=== PATIENT | female | born 1940 | race Two or more races ===

== ENCOUNTER 2018-12-25 16:17 | Inpatient (IN) | payer MEDICARE ==
[~2018-12-25] VITALS: Ht 167.6 cm; Wt 85.3 kg
--- NOTE | 2018-12-25 16:24 | NUR ---
PT BIB [facility] TO ADMISSION TO [facility], PT IS AAOX2, NOT IN RESPIRATORY DISTRESS, HOOKED TO MONITOR, KEPT RESTED AND COMFORTABLE, WILL CONTINUE TO MONITOR.
--- NOTE | 2018-12-25 16:40 | NUR ---
PT SEEN AND EXAMINED BY DR. KELLY.
--- NOTE | 2018-12-25 16:42 | NUR ---
URINE SPECIMEN COLLECTED AND SENT TO LAB.
[2018-12-25] MEDS ORDERED: LEVO175T7 PO (16:43)
[2018-12-25] MEDS ORDERED: INSU100V11 SQ (16:43)
[2018-12-25] MEDS ORDERED: BISA10SU11 RC (16:43)
[2018-12-25] MEDS ORDERED: FURO-144 PO (16:43)
[2018-12-25] MEDS ORDERED: MAGN400O6 PO (16:43)
[2018-12-25] MEDS ORDERED: IPRA3AMP23 IH ×2 (16:43)
[2018-12-25] MEDS ORDERED: DOCU-141 PO (16:43)
[2018-12-25] MEDS ORDERED: DIVA250T4 PO (16:43)
[2018-12-25] MEDS ORDERED: ASPI-869 PO (16:43)
[2018-12-25] MEDS ORDERED: FERR325T24 PO (16:43)
[2018-12-25] MEDS ORDERED: LISI2.5T2 PO (16:43)
[2018-12-25] MEDS ORDERED: RISP0.253 PO (16:43)
[2018-12-25] MEDS ORDERED: NA P133E RC (16:43)
[2018-12-25] MEDS ORDERED: PSYL0.525 PO (16:43)
[2018-12-25] MEDS ORDERED: PANT40TA2 PO (16:43)
[2018-12-25] MEDS ORDERED: ACET-868 PO (16:43)
[2018-12-25 16:54] LABS: BASOPHILS % (AUTO) 0.5 % (0.0-2.0); EOSINOPHILS % (AUTO) 4.4 % (0.0-6.0); HEMATOCRIT 31 % (33-45); HEMOGLOBIN 9.9 g/dL (11.5-14.8); LYMPHOCYTES # (AUTO) 1.8 /CMM (0.8-4.8); LYMPHOCYTES % (AUTO) 37.7 % (20.0-44.0); MEAN CORPUSCULAR HGB CONC 32 g/dl (31.0-36.0); MEAN CORPUSCULAR VOLUME 90 fL (82-100); MONOCYTES # (AUTO) 0.4 /CMM (0.1-1.30); MONOCYTES % (AUTO) 9.1 % (2.0-12.0); NEUTROPHILS # (AUTO) 2.3 /CMM (1.8-8.9); NEUTROPHILS % (AUTO) 48.3 % (43.0-81.0); PLATELET COUNT (AUTO) 165 /CMM (150-450); RED BLOOD CELL COUNT(AUTO) 3.39 MIL/uL (4.0-5.2); WHITE BLOOD COUNT (AUTO) 4.7 K/uL (4.3-11.0)
[2018-12-25 17:01] LABS: APPEARANCE,URINE Clear (CLEAR); BILIRUBIN,URINE Negative (NEGATIVE); BLOOD, URINE Negative Ery/uL (NEGATIVE); COLOR,URINE Yellow (YELLOW); KETONES,URINE Negative (NEGATIVE); LEUKOCYTE ESTERASE ,URINE Negative (NEGATIVE); NITRITE, URINE Negative (NEGATIVE); PH,URINE 5.5 (5.0-8.0); PROTEIN,URINE 30 mg/dl (NEGATIVE); UGLUCOSE Negative (NEGATIVE); UROBILINOGEN,URINE 0.2 EU/dL (0.2)
[2018-12-25 17:07] LABS: ALANINE AMINOTRANSFERASE 18 U/L (12-78); ALBUMIN 3.1 g/dL (3.4-5.0); ALCOHOL, BLOOD < 3 mg/dL (0-0); ALKALINE PHOSPHATASE 65 U/L (46-116); ASPARTATE AMINOTRANSFERASE 68 U/L (15-37); BILIRUBIN,DIRECT 0.1 mg/dL (0.0-0.2); BILIRUBIN,TOTAL 0.2 mg/dL (0.2-1.0); CALCIUM, SERUM 9.6 mg/dL (8.5-10.1); CARBON DIOXIDE 31 mmol/L (21-32); CHLORIDE 106 mmol/L (98-107); CREATININE 1.6 mg/dL (0.6-1.3); GLUCOSE 106 mg/dL (74-106); POTASSIUM 4.2 mmol/L (3.5-5.1); SODIUM SERUM 144 mmol/L (136-145); TOTAL PROTEIN, SERUM 8.6 g/dL (6.4-8.2); UREA NITROGEN, BLOOD 25 mg/dL (7-18)
[2018-12-25 17:10] LABS: SALICYLATE 1.1 mg/dL (2.8-20.0)
[2018-12-25 17:11] LABS: ACETAMINOPHEN 0 ug/ml (10-30)
--- NOTE | 2018-12-25 17:20 | NUR ---
PER HEADER SET UP OPERATOR OUMOU HE WILL BE HERE SOON HE IS CLEAR TO LEAVE OTHER FACILITY
[2018-12-25] MEDS ORDERED: BISACODYL SUPP (10 MG) 10 MG/SUPP.RECT SUPP.RECT RC PRN (18:00)
[2018-12-25] MEDS ORDERED: NA PHOS,M-B/NA PHOS,DI-BA 1 EA ENEMA RC PRN (18:00)
[2018-12-25] MEDS ORDERED: DEXTROSE 50%-WATER 50 ML DISP.SYRIN IV PRN ×2 (18:00→20:30)
[2018-12-25] MEDS ORDERED: MAGNESIUM HYDROXIDE 30 ML UDC PO PRN ×2 (18:00→20:00)
[2018-12-25] MEDS ORDERED: ACETAMINOPHEN 325 MG TABLET PO PRN ×2 (18:00→20:00)
--- NOTE | 2018-12-25 18:31 | NUR ---
OUMOU AZAR AT BEDSIDE FOR EVAL.
--- NOTE | 2018-12-25 18:34 | NUR ---
[facility]PS 212-1
--- NOTE | 2018-12-25 18:37 | NUR ---
REPORT GIVEN TO OUMOU GALEANA OF [facility]
[2018-12-25 19:40] VITALS: BP 117/66
--- NOTE | 2018-12-25 19:40 | NUR ---
GPS ADMISSION NOTES: ADMITTED A 78-YR OLD FEMALE, FROM [facility]. ON 5150 FOR DTS/GD. PER HOLD, PATIENT REPORTED FEELING SAD, HIGH ANXIETY, AND SOME THOUGHTS OF SUICIDE. PT. STATED "SOMETIMES I DO FEEL SAD AND THINK ABOUT SUICIDE". PT HAD A PLAN. PT. REPORTED TROUBLE SLEEPING, OFTEN WAKING UP THROUGHOUT THE NIGHT. PT. REPORTED POOR APPETITE D/T FEELING OF DEPRESSION AND HIGH ANXIETY. UPON FACE TO FACE ASSESSMENT, PATIENT IS ALERT AND ORIENTED X1, CONFUSED, ANXIOUS, UNCOOPERATIVE, FEELING DEPRESSED, VERBALIZATION OF FEELING ENCOURAGED. REORIENTATION PROVIDED. PT. DENIES SI/HI/AVH AT THIS TIME. PT. WAS ADVISED OF THE HOLD. PT'S RIGHTS DISCUSSED GUIDE TO PRESCRIPTION MEDICATIONS PROVIDED. IN NO APPARENT DISTRESS NOTED. BELONGINGS WERE INVENTORIED AND CHECKED FOR CONTRABAND. PT IS UNDER THE PSYCHIATRIC CARE OF DR. CONNIE ANGEL, AND UNDER THE MEDICAL CARE OF [facility]. REFUSED SKIN BODY ASSESSMENT AND REFUSED TO SIGN ADMISSION CONSENTS WELL D/T MENTAL STATUS. BED LOCKED AND PLACED IN LOWEST POSITION. FALL PRECAUTIONS IN PLACE. WILL CONTINUE TO MONITOR Q15 MIN ROUNDS FOR SAFETY AND BEHAVIOR. NO FAMILY TO NOTIFY.
[2018-12-25 20:00] VITALS: BP 117/66
[2018-12-25] MEDS ORDERED: MAG HYDROX/AL HYDROX/SIMETH 30 ML UDC PO PRN (20:00)
[2018-12-25] MEDS ORDERED: BLOOD SUGAR DIAGNOSTIC 1 EACH STRIP IN ONE (20:00)
[2018-12-25] MEDS ORDERED: INSULIN REGULAR, HUMAN 100 UNIT/ML 3 ML VIAL SQ PRN (20:30)
[2018-12-25] MEDS: BLOOD SUGAR DIAGNOSTIC 1 EACH STRIP IN SCH (21:48)
[2018-12-25] MEDS ORDERED: BLOOD SUGAR DIAGNOSTIC 1 EACH STRIP IN SCH (22:00)
--- NOTE | 2018-12-26 06:19 | NUR ---
GPS-RN PATIENT REFUSED BLOOD DRAW THIS MORNING. DESPITE OF EDUCATION PROVIDED. PT. STATES "I WILL BITE YOU". WILL ENDORSE TO THE DAY SHIFT NURSE ACCORDINGLY.
[2018-12-26] MEDS: LEVOTHYROXINE SODIUM 50 MCG TABLET PO SCH (07:30)
[2018-12-26] MEDS: PANTOPRAZOLE 40 MG TABLET.DR PO SCH (07:30)
[2018-12-26] MEDS: BLOOD SUGAR DIAGNOSTIC 1 EACH STRIP IN SCH ×4 (07:59→22:15)
[2018-12-26 08:00] VITALS: BP 125/64
[2018-12-26] MEDS: INSULIN REGULAR, HUMAN 100 UNIT/ML 3 ML VIAL SQ PRN ×2 (08:11→22:16)
--- NOTE | 2018-12-26 08:29 | NUR ---
Care plan review. Completed blood glucose monitoring for am which reveals a 144 mg/dL value. Will follow up blood glucose at lunch. Patient requires extra time, teaching for compliance with blood glucose testing and insulin administration. Patient is confused. Says she does not have diabetes. Aime Wilcox RN
[2018-12-26] MEDS: DOCUSATE SODIUM 100 MG CAPSULE PO SCH ×2 (09:00→17:08)
[2018-12-26] MEDS: LISINOPRIL (5MG) 5 MG TABLET PO SCH (09:00)
[2018-12-26] MEDS: FUROSEMIDE 40 MG TABLET PO SCH (09:00)
[2018-12-26] MEDS: ASPIRIN EC 325 MG TABLET.DR PO SCH (09:00)
[2018-12-26] MEDS: FERROUS SULFATE (325 MG) 325 MG/TAB TABLET PO SCH ×2 (09:00→17:09)
[2018-12-26 10:22] LABS: BASOPHILS % (AUTO) 0.6 % (0.0-2.0); EOSINOPHILS % (AUTO) 3.4 % (0.0-6.0); HEMATOCRIT 29 % (33-45); HEMOGLOBIN 9.7 g/dL (11.5-14.8); LYMPHOCYTES # (AUTO) 1.4 /CMM (0.8-4.8); LYMPHOCYTES % (AUTO) 33.7 % (20.0-44.0); MEAN CORPUSCULAR HGB CONC 33 g/dl (31.0-36.0); MEAN CORPUSCULAR VOLUME 90 fL (82-100); MONOCYTES # (AUTO) 0.3 /CMM (0.1-1.30); MONOCYTES % (AUTO) 7.9 % (2.0-12.0); NEUTROPHILS # (AUTO) 2.3 /CMM (1.8-8.9); NEUTROPHILS % (AUTO) 54.4 % (43.0-81.0); PLATELET COUNT (AUTO) 158 /CMM (150-450); RED BLOOD CELL COUNT(AUTO) 3.27 MIL/uL (4.0-5.2); WHITE BLOOD COUNT (AUTO) 4.1 K/uL (4.3-11.0)
[2018-12-26 10:32] LABS: ALANINE AMINOTRANSFERASE 11 U/L (12-78); ALBUMIN 3.1 g/dL (3.4-5.0); ALKALINE PHOSPHATASE 58 U/L (46-116); ASPARTATE AMINOTRANSFERASE 60 U/L (15-37); BILIRUBIN,TOTAL 0.4 mg/dL (0.2-1.0); CALCIUM, SERUM 9.2 mg/dL (8.5-10.1); CARBON DIOXIDE 29 mmol/L (21-32); CHLORIDE 104 mmol/L (98-107); CREATININE 1.4 mg/dL (0.6-1.3); GLUCOSE 200 mg/dL (74-106); POTASSIUM 4.2 mmol/L (3.5-5.1); SODIUM SERUM 141 mmol/L (136-145); TOTAL PROTEIN, SERUM 8.2 g/dL (6.4-8.2); UREA NITROGEN, BLOOD 21 mg/dL (7-18)
[2018-12-26 10:35] LABS: CHOLESTEROL 178 mg/dL (<200); HDL CHOLESTEROL 43 mg/dL (40-60); LDL 120 mg/dL (0-99); TRIGLYCERIDES 49 mg/dL (30-150)
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
[2018-12-26] MEDS: DIVALPROEX SODIUM 250 MG TABLET.DR PO SCH ×2 (13:30→17:09)
--- NOTE | 2018-12-26 15:20 | NUR ---
Skin assessment: patient refused skin assessment on admission and throughout this shift. Aime Wilcox RN
[2018-12-26 15:54] VITALS: BP 105/87
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
--- NOTE | 2018-12-26 19:22 | NUR ---
Handoff endorsement to night RN. Patient is requiring increase in supervision, time, and teaching to become compliant with treatment regimen. Daughter aware of patient stay and visiting hours. A request for DPOA paperwork from her when she is able to bring the paperwork has not been received at this time. Aime Wilcox RN
[2018-12-26 20:29] VITALS: BP 140/71
[2018-12-26] MEDS: MIRTAZAPINE 15 MG TABLET PO SCH (21:08)
[2018-12-26] MEDS: TEMAZEPAM 7.5 MG CAPSULE PO PRN (23:01)
--- NOTE | 2018-12-27 07:44 | NUR ---
RN NOTES PT REFUSED 0730 ACCU CHECK. EDUCATED THE PATIENT ON THE IMPORTANCE OF BLOOD SUGAR MONITORING. WILL CONTINUE TO EDUCATE AND FOLLOW UP.
[2018-12-27 08:00] VITALS: BP 139/67
[2018-12-27] MEDS: BLOOD SUGAR DIAGNOSTIC 1 EACH STRIP IN SCH ×4 (08:31→21:35)
[2018-12-27] MEDS: LISINOPRIL (5MG) 5 MG TABLET PO SCH (08:42)
[2018-12-27] MEDS: FUROSEMIDE 40 MG TABLET PO SCH (08:42)
[2018-12-27] MEDS: FERROUS SULFATE (325 MG) 325 MG/TAB TABLET PO SCH ×2 (08:42→17:00)
[2018-12-27] MEDS: risperiDONE 0.25 MG TABLET PO SCH ×2 (08:42→17:00)
[2018-12-27] MEDS: ASPIRIN EC 325 MG TABLET.DR PO SCH (08:42)
[2018-12-27] MEDS: PANTOPRAZOLE 40 MG TABLET.DR PO SCH (08:43)
[2018-12-27] MEDS: DOCUSATE SODIUM 100 MG CAPSULE PO SCH ×2 (08:43→17:00)
[2018-12-27] MEDS: LEVOTHYROXINE SODIUM 50 MCG TABLET PO SCH (08:43)
[2018-12-27] MEDS: DIVALPROEX SODIUM 250 MG TABLET.DR PO SCH ×2 (08:43→17:00)
--- NOTE | 2018-12-27 08:45 | NUR ---
RN NOTES PT REFUSED ALL AM MEDICATIONS. PROTONIX, SYNTHROID, COLACE, DEPAKOTE, ECOTRIN, FERROUS, LASIX, LISINOPRIL.
--- NOTE | 2018-12-27 14:36 | NUR ---
HARI called the pts daughter, Lexie ([phone]), and left a voicemail stating that she would like to discuss the pts treatment plan and initial discharge plan.
--- NOTE | 2018-12-27 14:40 | NUR ---
Cele Thompson ([phone]), pts friend, called the SW and stated that she would like information regarding the pts current condition, discharge plan and medications. SW went over all of the information that was available at the time and informed her that she would be kept updated regarding the pts treatment.
--- NOTE | 2018-12-27 15:22 | NUR ---
Group Note: Pt was asked to participate in group therapy on 12/27/18 at 2pm on the topic of discharge planning but the pt appeared to be oriented x1 (self) and did not seem to be appropriate for group.
[2018-12-27 16:00] VITALS: BP 150/69
[2018-12-27] MEDS: clonazePAM 0.5 MG TABLET PO PRN (19:32)
[2018-12-27 19:56] VITALS: BP 140/74
[2018-12-27] MEDS: INSULIN REGULAR, HUMAN 100 UNIT/ML 3 ML VIAL SQ PRN (21:34)
[2018-12-27] MEDS: MIRTAZAPINE 15 MG TABLET PO SCH (21:35)
[2018-12-27] MEDS: TEMAZEPAM 7.5 MG CAPSULE PO PRN (23:47)
[2018-12-28] MEDS: LEVOTHYROXINE SODIUM 50 MCG TABLET PO SCH (07:30)
[2018-12-28] MEDS: BLOOD SUGAR DIAGNOSTIC 1 EACH STRIP IN SCH ×4 (07:30→22:00)
[2018-12-28] MEDS: PANTOPRAZOLE 40 MG TABLET.DR PO SCH (07:30)
[2018-12-28 08:00] VITALS: BP 117/60
[2018-12-28] MEDS: DIVALPROEX SODIUM 250 MG TABLET.DR PO SCH ×3 (09:00→17:00)
[2018-12-28] MEDS: ASPIRIN EC 325 MG TABLET.DR PO SCH (09:00)
[2018-12-28] MEDS: LISINOPRIL (5MG) 5 MG TABLET PO SCH (09:00)
[2018-12-28] MEDS: FERROUS SULFATE (325 MG) 325 MG/TAB TABLET PO SCH ×2 (09:00→17:00)
[2018-12-28] MEDS: FUROSEMIDE 40 MG TABLET PO SCH (09:00)
[2018-12-28] MEDS: DOCUSATE SODIUM 100 MG CAPSULE PO SCH ×2 (09:00→17:00)
[2018-12-28] MEDS: risperiDONE 0.25 MG TABLET PO SCH ×3 (09:00→17:00)
--- NOTE | 2018-12-28 09:07 | NUR ---
RN NOTES PATIENT REFUSED MORNING SCHEDULED MEDICATION, AND ACCU CHECK TO BE TAKEN. OFFERED X3 BUT STILL REFUSED. MD AWARE OF. CONTINUED MONITORING.
--- NOTE | 2018-12-28 10:44 | NUR ---
HARI contacted Chelo ([phone]) from [facility] [place] and confirmed that the pt can return to the facility once she is stable for discharge.
--- NOTE | 2018-12-28 14:19 | NUR ---
Initial Discharge Plan: Pt currently resides at [facility] located at [address] [place] [id number]; ([phone]). Per pt, she was unable to say where she would like to be discharged. SW will work with the pt and the MD regarding appropriate discharge planning. SW will form a safe and proper discharge.
--- NOTE | 2018-12-28 14:20 | NUR ---
HARI called the pts daughter, Lexie ([phone]), and discussed the pts treatment and initial discharge plan. It was very difficult to understand the pts daughter but attempted to answer questions regarding her current state. She was informed that the pt has not been compliant with her medications.
--- NOTE | 2018-12-28 14:21 | NUR ---
SW called pts friend, Cele ([phone]), and asked for collateral information regarding the pts assessment that the SW was unable to receive from the pts daughter and the pt herself.
--- NOTE | 2018-12-28 15:23 | NUR ---
Group Note: Pt was encouraged to attend group therapy on 12/28/18 at 2pm regarding support systems and their impact but the pt was in her room and stated that she wanted to remain there because she was tired. SW and the pt had a brief individual intervention regarding the pts daughter and her friends who are helpful and care about her safety.
[2018-12-28 16:02] VITALS: BP 136/56
--- NOTE | 2018-12-28 17:00 | NUR ---
RN NOTES PATIENT REFUSED 0900 MEDICATION AND ACU CHECK, ALSO 1700 TOO. PSYCHIATRIST, AND STAINED GLASS GLAZIER HELPER AWARE OF.
--- NOTE | 2018-12-28 19:40 | NUR ---
RN NOTES RECEIVED REPORT FROM [facility] KERVIN WILSON. FOUND Pt ASLEEP IN BED. NO S/S OF ACUTE DISTRESS OR SOB NOTED. RESPIRATIONS EVEN AND UNLABORED WITH EQUAL CHEST RISE AND FALL. PER REPORT Pt IS ABLE TO COMMUNICATE AND MAKE NEEDS KNOWN AND ANSWER QUESTIONS. SAFETY MEASURES IN PLACE. BED LOW, LOCKED, HOB ELEVATED, SIDE RAILS UP, BED ALARM ON. WILL CONTINUE TO MONITOR Pt's CONDITION AND SAFETY THROUGHOUT THE NIGHT.
[2018-12-28] MEDS: MIRTAZAPINE 15 MG TABLET PO SCH (22:00)
--- NOTE | 2018-12-28 22:36 | NUR ---
RN NOTES Pt REFUSED TO TAKE HER NIGHT MEDS & CHECK HER HS ACCUCHECK. ATTEMPTED 3X & Pt KEPT REFUSING AND SAID SHE WANTED TO BE LEFT ALONE AND WANTED TO CONTINUE SLEEPING.
[2018-12-29] MEDS: PANTOPRAZOLE 40 MG TABLET.DR PO SCH (07:30)
[2018-12-29] MEDS: LEVOTHYROXINE SODIUM 50 MCG TABLET PO SCH (07:30)
[2018-12-29] MEDS: BLOOD SUGAR DIAGNOSTIC 1 EACH STRIP IN SCH ×4 (07:30→21:56)
--- NOTE | 2018-12-29 07:41 | NUR ---
RN NOTES PT REFUSED BLOOD SUGAR CHECK. RISK AND BENEFITS EXPLAINED, INSIST TO REFUSE.
[2018-12-29 08:00] VITALS: BP 122/54
[2018-12-29] MEDS: DOCUSATE SODIUM 100 MG CAPSULE PO SCH ×2 (08:59→17:13)
[2018-12-29] MEDS: DIVALPROEX SODIUM 250 MG TABLET.DR PO SCH ×3 (09:00→17:13)
[2018-12-29] MEDS: risperiDONE 0.25 MG TABLET PO SCH ×3 (09:00→17:13)
[2018-12-29] MEDS: LISINOPRIL (5MG) 5 MG TABLET PO SCH (09:00)
[2018-12-29] MEDS: FERROUS SULFATE (325 MG) 325 MG/TAB TABLET PO SCH ×2 (09:00→17:13)
[2018-12-29] MEDS: ASPIRIN EC 325 MG TABLET.DR PO SCH (09:00)
[2018-12-29] MEDS: FUROSEMIDE 40 MG TABLET PO SCH (09:00)
--- NOTE | 2018-12-29 12:19 | NUR ---
RN NOTES PT REFUSED TO HAVE NOON MEDICATIONS AND BLOOD SUGAR TO BE CHECKED.
--- NOTE | 2018-12-29 15:36 | NUR ---
Group Note: SW went to patient's room to invite patient to attend today's support group at 2:45pm regarding positive coping mechanisms being held in the activities room. Patient presented laying on her bed sleeping. SW attempted to wake patient but they remained sleeping.
[2018-12-29 16:00] VITALS: BP 137/84
[2018-12-29 20:02] VITALS: BP 132/71
--- NOTE | 2018-12-29 21:53 | NUR ---
RN NOTES: PT. REFUSED BLOOD SUGAR CHECK. RISK AND BENEFITS EXPLAINED, PT. STRONGLY REFUSED AND PT. BEHAVIOUR UNCOOPERTIVE .
[2018-12-30] MEDS: LEVOTHYROXINE SODIUM 50 MCG TABLET PO SCH (07:30)
[2018-12-30] MEDS: PANTOPRAZOLE 40 MG TABLET.DR PO SCH (07:30)
[2018-12-30] MEDS: BLOOD SUGAR DIAGNOSTIC 1 EACH STRIP IN SCH ×4 (07:30→20:55)
[2018-12-30 08:00] VITALS: BP 108/66
[2018-12-30] MEDS: FUROSEMIDE 40 MG TABLET PO SCH ×2 (09:00→10:18)
[2018-12-30] MEDS: DIVALPROEX SODIUM 250 MG TABLET.DR PO SCH ×4 (09:00→16:58)
[2018-12-30] MEDS: FERROUS SULFATE (325 MG) 325 MG/TAB TABLET PO SCH ×3 (09:00→16:58)
[2018-12-30] MEDS: DOCUSATE SODIUM 100 MG CAPSULE PO SCH ×3 (09:00→16:58)
[2018-12-30] MEDS: risperiDONE 0.25 MG TABLET PO SCH ×4 (09:00→16:58)
[2018-12-30] MEDS: LISINOPRIL (5MG) 5 MG TABLET PO SCH ×2 (09:00→10:24)
[2018-12-30] MEDS: ASPIRIN EC 325 MG TABLET.DR PO SCH ×2 (09:00→10:18)
--- NOTE | 2018-12-30 09:05 | NUR ---
GPS/RN-NOTES PATIENT REFUSED ACCU-CHECK AND ALL MEDICATIONS DESPITE EXPLANATION RISK AND BENEFITS.STATED" I DON'T NEED MEDICATIONS AND DON'T POKE ME ANYWHERE". PATIENTS GETS ANGRY AND AGITATED. OFFERED X3 .
--- NOTE | 2018-12-30 10:26 | NUR ---
GPS/RN-NOTES DR. BUSTOS IN THE UNIT AND TALK TO THE PATIENT AND PATIENT FINALLY AGREED TO TAKE O900AM MEDICATIONS.
--- NOTE | 2018-12-30 12:17 | NUR ---
GPS/RN-NOTES PATIENT REFUSED LAB DRAW AND ULTRASOUND DESPITE EXPLANATION RISK AND BENEFITS. DID ATTEMPT SEVERAL TIMES.BUT STILL REFUSED.
[2018-12-30 16:00] VITALS: BP 119/70
[2018-12-30] MEDS: INSULIN REGULAR, HUMAN 100 UNIT/ML 3 ML VIAL SQ PRN (18:12)
[2018-12-30 20:10] VITALS: BP 134/72
[2018-12-31] MEDS: BLOOD SUGAR DIAGNOSTIC 1 EACH STRIP IN SCH ×4 (07:30→21:57)
--- NOTE | 2018-12-31 07:43 | NUR ---
GPS RN NOTES Patient self ambulating at this time. Redirected Patient back to her room but Patient refused. Patient stated, "Leave me alone!" Patient refusing to go back to room and to sit in chair. Will continue to monitor.
[2018-12-31 08:00] VITALS: BP 123/66
[2018-12-31] MEDS: LEVOTHYROXINE SODIUM 50 MCG TABLET PO SCH (08:03)
[2018-12-31] MEDS: PANTOPRAZOLE 40 MG TABLET.DR PO SCH (08:03)
[2018-12-31 09:00] LABS: BASOPHILS % (AUTO) 0.8 % (0.0-2.0); EOSINOPHILS % (AUTO) 3.6 % (0.0-6.0); HEMATOCRIT 28 % (33-45); HEMOGLOBIN 9.5 g/dL (11.5-14.8); LYMPHOCYTES # (AUTO) 2.1 /CMM (0.8-4.8); LYMPHOCYTES % (AUTO) 46.7 % (20.0-44.0); MEAN CORPUSCULAR HGB CONC 34 g/dl (31.0-36.0); MEAN CORPUSCULAR VOLUME 91 fL (82-100); MONOCYTES # (AUTO) 0.4 /CMM (0.1-1.30); MONOCYTES % (AUTO) 8.3 % (2.0-12.0); NEUTROPHILS # (AUTO) 1.8 /CMM (1.8-8.9); NEUTROPHILS % (AUTO) 40.6 % (43.0-81.0); PLATELET COUNT (AUTO) 153 /CMM (150-450); RED BLOOD CELL COUNT(AUTO) 3.12 MIL/uL (4.0-5.2); WHITE BLOOD COUNT (AUTO) 4.4 K/uL (4.3-11.0)
[2018-12-31] MEDS: DIVALPROEX SODIUM 250 MG TABLET.DR PO SCH ×4 (09:23→17:06)
[2018-12-31] MEDS: ASPIRIN EC 325 MG TABLET.DR PO SCH (09:23)
[2018-12-31] MEDS: DOCUSATE SODIUM 100 MG CAPSULE PO SCH ×3 (09:23→17:06)
[2018-12-31] MEDS: FUROSEMIDE 40 MG TABLET PO SCH (09:24)
[2018-12-31] MEDS: FERROUS SULFATE (325 MG) 325 MG/TAB TABLET PO SCH ×3 (09:24→17:06)
[2018-12-31] MEDS: risperiDONE 0.25 MG TABLET PO SCH ×4 (09:25→17:07)
[2018-12-31] MEDS: LISINOPRIL (5MG) 5 MG TABLET PO SCH (09:25)
[2018-12-31 09:32] LABS: CALCIUM, SERUM 8.9 mg/dL (8.5-10.1); CARBON DIOXIDE 30 mmol/L (21-32); CHLORIDE 105 mmol/L (98-107); CREATININE 1.6 mg/dL (0.6-1.3); GLUCOSE 146 mg/dL (74-106); MAGNESIUM 1.9 mg/dL (1.8-2.4); PHOSPHORUS 3.8 mg/dL (2.5-4.9); POTASSIUM 4.2 mmol/L (3.5-5.1); SODIUM SERUM 140 mmol/L (136-145); UREA NITROGEN, BLOOD 33 mg/dL (7-18)
[2018-12-31 09:48] LABS: THYROID STIMULATING HORMONE 67.585 uIU/mL (0.358-3.74)
--- NOTE | 2018-12-31 10:05 | NUR ---
PC Hearing Notification: SW called the pts daughter, Lexie ([phone]), and left a message that informed her that the pt is going to be having a hearing today and informed her on what the hearing entails.
[2018-12-31] MEDS: clonazePAM 0.5 MG TABLET PO PRN (11:47)
--- NOTE | 2018-12-31 14:45 | NUR ---
GROUP NOTE: Pt unable to participate in group due to being aggressive and refusing medications. Pt refused to participate and yelled at SW to leave her alone.
[2018-12-31 16:00] VITALS: BP 117/72
[2018-12-31 20:00] VITALS: BP 115/65
[2018-12-31 20:13] VITALS: BP 103/60
[2019-01-01] MEDS: BLOOD SUGAR DIAGNOSTIC 1 EACH STRIP IN SCH ×4 (07:30→22:00)
[2019-01-01 08:00] VITALS: BP 127/71
--- NOTE | 2019-01-01 09:46 | NUR ---
GPS/RN PT REFUSED AM MEDS AND ACCUCHECK OFFERED X3. WILL TRY TO MEDICATE LATER. CHARGE NURSE AWARE OF PT'S REFUSAL
[2019-01-01] MEDS: LEVOTHYROXINE SODIUM 50 MCG TABLET PO SCH (10:52)
[2019-01-01] MEDS: FUROSEMIDE 40 MG TABLET PO SCH (10:52)
[2019-01-01] MEDS: DIVALPROEX SODIUM 250 MG TABLET.DR PO SCH ×3 (10:52→16:27)
[2019-01-01] MEDS: ASPIRIN EC 325 MG TABLET.DR PO SCH (10:53)
[2019-01-01] MEDS: risperiDONE 0.25 MG TABLET PO SCH ×3 (10:53→16:26)
[2019-01-01] MEDS: LISINOPRIL (5MG) 5 MG TABLET PO SCH (10:53)
[2019-01-01] MEDS: PANTOPRAZOLE 40 MG TABLET.DR PO SCH (10:53)
[2019-01-01] MEDS: DOCUSATE SODIUM 100 MG CAPSULE PO SCH ×2 (10:53→16:26)
[2019-01-01] MEDS: FERROUS SULFATE (325 MG) 325 MG/TAB TABLET PO SCH ×2 (10:54→16:26)
[2019-01-01] MEDS: CARVEDILOL 3.125 MG TABLET PO SCH ×2 (11:01→21:00)
[2019-01-01 16:00] VITALS: BP 119/65
[2019-01-02] MEDS: BLOOD SUGAR DIAGNOSTIC 1 EACH STRIP IN SCH ×4 (07:30→22:15)
[2019-01-02] MEDS: LEVOTHYROXINE SODIUM 50 MCG TABLET PO SCH (07:30)
[2019-01-02] MEDS: PANTOPRAZOLE 40 MG TABLET.DR PO SCH (07:30)
[2019-01-02 08:00] VITALS: BP 136/93
[2019-01-02] MEDS: DOCUSATE SODIUM 100 MG CAPSULE PO SCH ×2 (09:00→17:04)
[2019-01-02] MEDS: risperiDONE 0.25 MG TABLET PO SCH ×3 (09:00→17:06)
[2019-01-02] MEDS: LISINOPRIL (5MG) 5 MG TABLET PO SCH (09:00)
[2019-01-02] MEDS: DIVALPROEX SODIUM 250 MG TABLET.DR PO SCH ×3 (09:00→17:06)
[2019-01-02] MEDS: FERROUS SULFATE (325 MG) 325 MG/TAB TABLET PO SCH ×2 (09:00→17:03)
[2019-01-02] MEDS: FUROSEMIDE 40 MG TABLET PO SCH (09:00)
[2019-01-02] MEDS: ASPIRIN EC 325 MG TABLET.DR PO SCH (09:00)
[2019-01-02] MEDS: CARVEDILOL 3.125 MG TABLET PO SCH ×2 (09:00→21:53)
--- NOTE | 2019-01-02 11:15 | NUR ---
GPS/RN PT REFUSED AM MEDS AND ACCUCHECK OFFERED X3. CHARGE NURSE KARTHIK AWARE OF PT'S REFUSAL
[2019-01-02 16:00] VITALS: BP 138/75
[2019-01-02 21:06] VITALS: BP 134/91
[2019-01-03] MEDS: BLOOD SUGAR DIAGNOSTIC 1 EACH STRIP IN SCH ×2 (07:30→12:40)
[2019-01-03 07:42] LABS: CALCIUM, SERUM 8.9 mg/dL (8.5-10.1); CARBON DIOXIDE 24 mmol/L (21-32); CHLORIDE 106 mmol/L (98-107); CREATININE 1.5 mg/dL (0.6-1.3); GLUCOSE 105 mg/dL (74-106); POTASSIUM 4.9 mmol/L (3.5-5.1); SODIUM SERUM 139 mmol/L (136-145); UREA NITROGEN, BLOOD 32 mg/dL (7-18)
[2019-01-03 08:00] VITALS: BP 137/76
[2019-01-03] MEDS: ASPIRIN EC 325 MG TABLET.DR PO SCH (08:32)
[2019-01-03] MEDS: PANTOPRAZOLE 40 MG TABLET.DR PO SCH (08:32)
[2019-01-03] MEDS: DIVALPROEX SODIUM 250 MG TABLET.DR PO SCH ×2 (08:32→13:06)
[2019-01-03] MEDS: FUROSEMIDE 40 MG TABLET PO SCH (08:32)
[2019-01-03] MEDS: FERROUS SULFATE (325 MG) 325 MG/TAB TABLET PO SCH (08:32)
[2019-01-03] MEDS: DOCUSATE SODIUM 100 MG CAPSULE PO SCH (08:32)
[2019-01-03] MEDS: LEVOTHYROXINE SODIUM 50 MCG TABLET PO SCH (08:33)
[2019-01-03] MEDS: risperiDONE 0.25 MG TABLET PO SCH ×2 (08:33→13:06)
[2019-01-03] MEDS: CARVEDILOL 3.125 MG TABLET PO SCH (08:33)
[2019-01-03 09:40] VITALS: BP 136/76
[2019-01-03] MEDS: LISINOPRIL (5MG) 5 MG TABLET PO SCH (09:40)
[2019-01-03] MEDS ORDERED: FUROSEMIDE 40 MG/4 ML VIAL IV SCH (11:30)
--- NOTE | 2019-01-03 12:16 | NUR ---
HARI called the pts daughter, Lexie ([phone]), and informed her that the pt is going to be discharged back to [facility] today.
--- NOTE | 2019-01-03 12:17 | NUR ---
HARI called pts friend, Cele ([phone]), and left a voicemail that stated that the pt is going to be discharged back to [facility] today.
[2019-01-03] MEDS ORDERED: FUROSEMIDE 40 MG TABLET PO ONE (13:30)
--- NOTE | 2019-01-03 14:24 | NUR ---
SW met with the pts home health care provider from [facility], [place] ([phone]), and informed her of the discharge plan as well as how the pt has done in the hospital.
--- NOTE | 2019-01-03 15:15 | NUR ---
GPS MUSIC PUBLISHER NOTE: PT DISCHARGE TO [facility] IN STABLE CONDITION NO S/S DISTRESS NOTED, PT COOPERATIVE AND COMPLIANT WITH MEDICATIONS. DENIES SI/HI, NO C/O AGITATION AGGRESSIVE BEHAVIOR. VSS. PT A/OX1-2, CONFUSED. DR BUSTOS ORDER DC HOLD , CONTINUE MEDICATIONS,DR DANY Fulton ORDER DC PRN CONTINUE MEDICATIONS. DR VALLE NOTIFIED CLARIFY OF LASIX MEDICATIONS IV. NEW ORDER GIVE LASIX 8- Addendum: 01/03/19 at 1519 by ELIZABETH LINDSEY RN 80 MG PO ONCE ORDER PLACED AND CARED OUT. ALL BELONGINGS AND VALUABLES GIVEN TO PT REPORT GIVEN TO NIDHI GALEANA IN THE FACILITY.
--- NOTE | 2019-01-03 15:19 | NUR ---
Discharge Note: Pt was discharged to [facility] (SNF) [place] at [address] [place] [address]; ([phone]). Pt was transported via [facility] at 3:30PM. Pt�s friend, Cele ([phone]), was notified. Upon discharge, the pt appeared to be in a dysphoric mood and presented with a distressed affect. Pt denied both suicidal and homicidal ideation as well as auditory and visual hallucinations. Pt will continue to be under the care of her psychiatrist, Dr. Kemp, located at [address], [place] [address]; and her precision instrument maker and repairer, Dr. Lozano, located at [address], [place] [address], .
== END 2019-01-03 15:15 | DRG 885 ==
LOC: ER 16:17 → GPS 18:39
PROVIDERS: ADMIT Psychiatry & Neurology Psychiatry; ATTEND Nurse Practitioner Acute Care
DX: F25.0 Schizoaffective disorder, bipolar type (principal); N17.9 Acute kidney failure, unspecified; F23 Brief psychotic disorder; I13.0 Hypertensive heart and chronic kidney disease with heart failure and stage 1 through stage 4 chronic kidney disease, or unspecified chronic kidney disease; E44.1 Mild protein-calorie malnutrition; I50.20 Unspecified systolic (congestive) heart failure; F01.50 Vascular dementia, unspecified severity, without behavioral disturbance, psychotic disturbance, mood disturbance, and anxiety; N18.9 Chronic kidney disease, unspecified; E11.65 Type 2 diabetes mellitus with hyperglycemia; D64.9 Anemia, unspecified; E03.9 Hypothyroidism, unspecified; E86.9 Volume depletion, unspecified; E11.22 Type 2 diabetes mellitus with diabetic chronic kidney disease; D63.8 Anemia in other chronic diseases classified elsewhere; Z85.850 Personal history of malignant neoplasm of thyroid; D11.0 Benign neoplasm of parotid gland; F41.9 Anxiety disorder, unspecified; M19.90 Unspecified osteoarthritis, unspecified site; E88.09 Other disorders of plasma-protein metabolism, not elsewhere classified; Z68.30 Body mass index [BMI] 30.0-30.9, adult; R91.8 Other nonspecific abnormal finding of lung field; F02.80 Dementia in other diseases classified elsewhere, unspecified severity, without behavioral disturbance, psychotic disturbance, mood disturbance, and anxiety; G30.9 Alzheimer's disease, unspecified
CPT/HCPCS: 36415; 71045-TC; 80048-TC; 80053-TC; 80061-TC; 80076-TC; 80305; 81000-TC; 82728-TC; 82962-TC; 83540-TC; 83735-TC; 84100-TC; 84439-TC; 84443-TC; 85025-TC; 87081-TC; 93307-TC; 97116-TC; 97530-TC; G0480; J1815; J1940

== ENCOUNTER 2019-03-09 21:58 | Inpatient (IN) | payer MEDICARE ==
[~2019-03-09] VITALS: Ht 167.6 cm; Wt 81.6 kg
[~2019-03-09 21:58] MED LIST: ACET-868 PO; ASPI-869 PO; BISA10SU11 RC; DIVA250T4 PO; DOCU-141 PO; FERR325T24 PO; FURO-144 PO; INSU100V11 SQ; IPRA3AMP23 IH; LEVO175T7 PO; LISI2.5T2 PO; MAGN400O6 PO; NA P133E RC; PANT40TA2 PO; PSYL0.525 PO; RISP0.253 PO
--- NOTE | 2019-03-09 21:58 | NUR ---
PT BIB EMS FROM [facility] C/O LOW O2 SAT. PER EMS WHEN [facility] NAIL [place] REMOVED O2 SAT 95% ON RA. PT AOX0. NAD NOTED. PRODUCTIVE COUGH NOTED. PT ON MONITOR IN BED 2. WILL CONTINUE TO MONITOR.
--- NOTE | 2019-03-09 22:12 | NUR ---
RECTAL TEMP 103.4. MD AWARE.
[2019-03-09] MEDS ORDERED: PIPERACILLIN /TAZOBACTAM 3.375 G VIAL IV ONE (22:15)
[2019-03-09] MEDS ORDERED: VANCOMYCIN 1 GM VIAL ONE (22:15)
--- NOTE | 2019-03-09 22:26 | NUR ---
RADIOLOGY AT BEDSIDE FOR XRAY
[2019-03-09 22:27] LABS: BASOPHILS % (AUTO) 0.3 % (0.0-2.0); EOSINOPHILS % (AUTO) 0.2 % (0.0-6.0); HEMATOCRIT 37 % (33-45); HEMOGLOBIN 11.8 g/dL (11.5-14.8); LYMPHOCYTES # (AUTO) 0.5 /CMM (0.8-4.8); LYMPHOCYTES % (AUTO) 7.7 % (20.0-44.0); MEAN CORPUSCULAR HGB CONC 32 g/dl (31.0-36.0); MEAN CORPUSCULAR VOLUME 92 fL (82-100); MONOCYTES # (AUTO) 0.5 /CMM (0.1-1.30); MONOCYTES % (AUTO) 7.5 % (2.0-12.0); NEUTROPHILS # (AUTO) 5.6 /CMM (1.8-8.9); NEUTROPHILS % (AUTO) 84.3 % (43.0-81.0); PLATELET COUNT (AUTO) 126 /CMM (150-450); RED BLOOD CELL COUNT(AUTO) 4.01 MIL/uL (4.0-5.2); WHITE BLOOD COUNT (AUTO) 6.7 K/uL (4.3-11.0)
[2019-03-09] MEDS ORDERED: VANCOMYCIN 1 GM in IV D5W 250 ML IV ONE (22:30)
[2019-03-09] MEDS ORDERED: IV NS 0.9% 1,000 ML BAG IV ONE (22:30)
[2019-03-09] MEDS ORDERED: PIPERACILLIN /TAZOBACTAM 3.375 G in IV D5W 50 ML IV ONE (22:30)
[2019-03-09] MEDS ORDERED: ACETAMINOPHEN 650 MG/SUPP.RECT RC ONE (22:30)
[2019-03-09 22:44] LABS: CALCIUM, SERUM 8.9 mg/dL (8.5-10.1); CARBON DIOXIDE 25 mmol/L (21-32); CHLORIDE 112 mmol/L (98-107); CREATININE 1.3 mg/dL (0.6-1.3); GLUCOSE 147 mg/dL (74-106); POTASSIUM 4.5 mmol/L (3.5-5.1); SODIUM SERUM 146 mmol/L (136-145); UREA NITROGEN, BLOOD 28 mg/dL (7-18)
[2019-03-09 22:48] LABS: ALANINE AMINOTRANSFERASE 13 U/L (12-78); ALBUMIN 2.8 g/dL (3.4-5.0); ALKALINE PHOSPHATASE 65 U/L (46-116); ASPARTATE AMINOTRANSFERASE 30 U/L (15-37); BILIRUBIN,DIRECT 0.2 mg/dL (0.0-0.2); BILIRUBIN,TOTAL 0.4 mg/dL (0.2-1.0); TOTAL PROTEIN, SERUM 8.2 g/dL (6.4-8.2)
[2019-03-09 23:18] LABS: APPEARANCE,URINE Clear (CLEAR); BILIRUBIN,URINE SMALL (NEGATIVE); BLOOD, URINE Small Ery/uL (NEGATIVE); COLOR,URINE Yellow (YELLOW); KETONES,URINE Negative (NEGATIVE); LEUKOCYTE ESTERASE ,URINE Small (NEGATIVE); NITRITE, URINE Positive (NEGATIVE); PH,URINE 5.5 (5.0-8.0); PROTEIN,URINE >=300 mg/dl (NEGATIVE); UGLUCOSE Negative (NEGATIVE)
--- NOTE | 2019-03-09 23:28 | NUR ---
MESFIN (DAUGHTER) CONTACT INFORMATION: [phone]
[2019-03-10] MEDS ORDERED: GABA-532 PO (00:13)
[2019-03-10] MEDS ORDERED: LORA-259 PO (00:13)
[2019-03-10] MEDS ORDERED: CARV3.122 PO (00:13)
[2019-03-10 00:14] LABS: WBC,URINE TOO NUMEROUS TO COUN /HPF (0-3)
[2019-03-10 00:15] LABS: BACTERIA,URINE Moderate /HPF (None Seen); SQUAMOUS EPITHELIAL CELL,UR Few /HPF (None Seen)
[2019-03-10] MEDS ORDERED: Z GUARD REMEDY 2 OZ OINT TP PRN (00:30)
[2019-03-10] MEDS ORDERED: NA PHOS,M-B/NA PHOS,DI-BA 1 EA ENEMA RC PRN (00:30)
[2019-03-10] MEDS ORDERED: ACETAMINOPHEN 325 MG TABLET PO PRN ×2 (00:30)
[2019-03-10] MEDS ORDERED: MAG HYDROX/AL HYDROX/SIMETH 30 ML UDC PO PRN (00:30)
[2019-03-10] MEDS ORDERED: LORAZEPAM 1 MG TABLET PO PRN (00:30)
[2019-03-10] MEDS ORDERED: ZOLPIDEM TARTRATE 5 MG TABLET PO PRN (00:30)
[2019-03-10] MEDS ORDERED: HYDROCODONE/APAP 5/325MG 1 EACH TABLET PO PRN (00:30)
[2019-03-10] MEDS ORDERED: IV NS 0.9% 1,000 ML IV SCH (00:30)
[2019-03-10] MEDS ORDERED: ONDANSETRON HCL/PF 4 MG/2 ML VIAL IVP PRN (00:30)
[2019-03-10] MEDS ORDERED: MAGNESIUM HYDROXIDE 30 ML UDC PO PRN ×2 (00:30)
[2019-03-10] MEDS ORDERED: BISACODYL SUPP (10 MG) 10 MG/SUPP.RECT SUPP.RECT RC PRN (00:30)
--- NOTE | 2019-03-10 00:36 | NUR ---
PT TRANSFERRED TO [facility]
--- NOTE | 2019-03-10 00:45 | NUR ---
MS TRANSMISSION ASSEMBLER NOTES PATIENT CAME TO UNIT FROM ER VIA GURNEY. PATIENT IS HARD TO AROUSE. VITAL SIGNS CHECKED: BP- 124/64, HR- 75, RR- 18, T- 98.4F, SPO2- 98% ON 2LPM. BREATHING EVEN AND UNLABORED. NOT IN ANY DISTRESS. PATIENT COUGHS BUT HAS DIFFICULTY CLEARING OUT SECRETIONS. PATIENT MOVED HER BOWELS, SMALL, BROWN, SOFT. BIRCH CATHETER IN PLACE, DRAINING CLEAR YELLOW URINE. PATIENT HAS LAC G#18, RAC G#18, AND LEFT HAND G#18 IV ACCESS, ALL INTACT AND PATENT. BELONGINGS CHECKED BY ASSIGNED BLUEPRINT BLOCKER. SAFETY MEASURES IN PLACE; CALL LIGHT WITHIN REACH, BED IN LOW, LOCKED POSITION, BED ALARM ON, HEAD OF BED ELEVATED. WILL CONTINUE TO MONITOR ACCORDINGLY
[2019-03-10] MEDS ORDERED: CEFTRIAXONE 1 G in IV D5W 50 ML IV SCH (01:00)
[2019-03-10] MEDS ORDERED: AZITHROMYCIN 250 MG TABLET PO ONE (01:00)
[2019-03-10 01:13] VITALS: BP 124/64
[2019-03-10] MEDS ORDERED: CEFTRIAXONE 1 G VIAL ONE (01:26)
--- NOTE | 2019-03-10 01:43 | NUR ---
RN NOTES ZITHROMAX 500MG PO NOT GIVEN PATIENT HAS HISTORY OF DYSPHAGIA
--- NOTE | 2019-03-10 01:50 | NUR ---
RN NOTES INFORMED BY RADHA MELENDREZ THAT LAB CALLED WITH A CRITICAL RESULT OF LACTIC ACID OF 3.4. DR. CHING MADE AWARE. TELEPHONE ORDER RECEIVED TO REPEAT LACTIC ACID IN THE MORNING. DR. CHING ALSO INFORMED THAT PATIENT HAS A POLST OF DNR- WITNESSED BY ANOTHER RN. NEW CODE STATUS ORDER PLACED.
--- NOTE | 2019-03-10 07:14 | NUR ---
MS RN CLOSING NOTES PATIENT REMAINS THE SAME. NO ACUTE CHANGES OVERNIGHT. PERIPHERAL IV INFUSING AT 100ML/HR. BIRCH CATHETER IN PLACE, DRAINING CLEAR YELLOW URINE. ALL NEEDS ATTENDED. KEPT CLEAN AND DRY. SAFETY MEASURES IN PLACE. WILL ENDORSE LEELA TO MORNING RN
[2019-03-10] MEDS: PANTOPRAZOLE 40 MG TABLET.DR PO SCH (07:30)
[2019-03-10] MEDS: LEVOTHYROXINE SODIUM 175 MCG TABLET PO SCH (07:30)
--- NOTE | 2019-03-10 07:30 | NUR ---
MS RN NOTES RECEIVING PATIENT FROM [facility] [employer] [facility], PATIENT IS DIFFICULT TO AROUSE SINCE NIGHT TIME. PATIENT IS NOT ABLE TO FOLLOW DIRECTIONS. ONLY ABLE TO AROUSE FROM PAINFUL STIMULI. ACCORDING TO [facility] [facility] NURSE DOCTOR IS AWAKE. PATIENT ALSO WAS SUCTIONED SHOWS THICK HONG MUCOUS. PATIENT IS ALERT ORIENTED X 0. PATIENT IS ON NS ON 2L STATING AT 97- 100%. NO ACUTE DISTRESS, NO SIGNS OF PAIN. IV SITES ARE CLEAN DRY AND INTACT. RUNNING AT 100ML/HR NS. BIRCH CATHETER IS IN PLACE. SAFETY PRECAUTIONS IN PLACE. BED IN LOWEST, LOCKED POSITION, AND CALL LIGHT KEPT WITHIN REACH. WILL CONTINUE TO MONITOR.
[2019-03-10 08:00] VITALS: BP 105/56
--- NOTE | 2019-03-10 08:30 | NUR ---
MS RN NOTES DID NOT ADMINISTER PROTONIX AND SYNTHROID. PATIENT WAS NOT ABLE TO FOLLOW DIRECTIONS AND IS DIFFICULT TO AROUSE. PER RN JUDGEMENT NOT SAFE TO ADMINISTER. WILL CONTINUE TO MONITOR. WAITING FOR ST [facility].
[2019-03-10] MEDS: GABAPENTIN 100 MG CAPSULE PO SCH ×3 (09:00→17:00)
[2019-03-10] MEDS: DOCUSATE SODIUM 100 MG CAPSULE PO SCH ×2 (09:00→17:00)
[2019-03-10] MEDS: DIVALPROEX SODIUM 250 MG TABLET.DR PO SCH ×2 (09:00→17:00)
[2019-03-10] MEDS: risperiDONE 0.25 MG TABLET PO SCH ×2 (09:00→17:00)
[2019-03-10] MEDS: CARVEDILOL 3.125 MG TABLET PO SCH ×2 (09:00→17:00)
[2019-03-10] MEDS ORDERED: ASPIRIN EC 325 MG TABLET.DR PO SCH (09:00)
[2019-03-10] MEDS: LISINOPRIL (5MG) 5 MG TABLET PO SCH (09:00)
[2019-03-10] MEDS: PSYLLIUM SEED 1 PKT PACKET PO SCH ×2 (09:00→17:00)
--- NOTE | 2019-03-10 09:05 | NUR ---
MS RN NOTES PER EMAR, ALL 0900 MEDS NON-ADMINISTERED. PATIENT IS DIFFICULT TO AROUSE AND CANNOT FOLLOW DIRECTIONS. PER RN JUDGEMENT NOT SAFE TO ADMINISTER MEDICATIONS. DR. LENNON WAS NOTED AND MADE AWARE.
[2019-03-10] MEDS ORDERED: ALBUTEROL HALF STRENGTH 1.25 MG/3 ML VIAL.NEB NEB PRN (09:30)
[2019-03-10] MEDS ORDERED: PIPERACILLIN /TAZOBACTAM 3.375 G in IV D5W 50 ML IV ONE (10:30)
[2019-03-10] MEDS: ALBUTEROL HALF STRENGTH 1.25 MG/3 ML VIAL.NEB NEB SCH ×4 (11:29→23:35)
[2019-03-10] MEDS ORDERED: ALBUTEROL HALF STRENGTH 1.25 MG/3 ML VIAL.NEB NEB SCH (11:30)
[2019-03-10] MEDS: HEPARIN SODIUM, PORCINE 5000 UNITS/1 ML VIAL SQ SCH ×2 (11:32→20:45)
[2019-03-10 11:45] LABS: ABG BASE EXCESS -2.5 mmol/L; ABG OXYGEN SATURATION 97.3 % (92.0-98.5); ABG PCO2 38.9 mmHg (35.0-45.0); ABG PH 7.377 (7.350-7.450); ABG PO2 103.1 mmHg (75.0-100.0); AaDO2 50.6 mmHg; COHb 0.2 % (0.5-1.5); MetHb 0.7 % (0.0-1.5); O2Hb 96.4 % (94.0-97.0); SITE, ABG Left Radial; VENT MODE, BG 2LNC
--- NOTE | 2019-03-10 12:27 | NUR ---
MS/RN NOTE DR DAILY IS MADE AWARE OF ABG, BNP AND TROPONIN RESULTS. PER MD TROPONIN CHECK AT 1600. THERE IS ALREADY AN ORDER OF TROPONIN CHECK AT 1600. WILL CONTINUE TO MONITOR.
--- NOTE | 2019-03-10 13:01 | NUR ---
MS RN NOTES PER EMAIL, 1300 NEURONTIN NON-ADMINISTERED. PATIENT IS DIFFICULT TO AROUSE AND CANNOT FOLLOW DIRECTION. PER RN JUDGEMENT NOT SAFE TO ADMINISTER. DR. LENNON MADE AWARE.
[2019-03-10 16:00] VITALS: BP 115/62
[2019-03-10] MEDS: PIPERACILLIN /TAZOBACTAM 3.375 G in IV D5W 100 ML IV SCH (17:06)
--- NOTE | 2019-03-10 17:09 | NUR ---
MS RN NOTES PER EMAR, ALL 1700 MEDICATION WERE NOT ADMINISTER. PATIENT IS ALERT AND ORIENTED X 1. PER RN JUDGEMENT NOT SAFE TO ADMINISTER TO PATIENT. DR DAILY IS MADE AWARE AND NOTED.
--- NOTE | 2019-03-10 18:19 | NUR ---
Patient is altered, has hx of dementia. She resides at [facility] [phone]. She is chair and bedfast at the SNF and requires max assist with adl's. Current dc plan is to return to SNF when stable. Addendum: 03/10/19 at 1820 by WILMA BOWERS RN Amended: Links added.
--- NOTE | 2019-03-10 19:05 | NUR ---
MS RN NOTES PATIENT IN BED ALERT AND ORIENTED X 1. BEGINNING OF SHIFT DIFFICULT TO AROUSE, IMPROVED MENTAL STATUS RESPONSE TO VERBAL STIMULI, ABLE TO FOLLOW DIRECTIONS BETTER. DISPLAYS NO ACUTE DISTRESS, AND DISPLAYS NO PAIN. HAS EVEN AND UNLABORED RESPIRATION . IV'S ARE CLEAN DRY AND INTACT. SHOWS NO INFILTRATION AND NO REDNESS. PATIENT DUE TO SAFETY ISSUES WAS KEPT NPO, MD IS AWARE. PATIENT NEEDS WERE ATTENDED TO THROUGHOUT SHIFT. SAFETY PRECAUTIONS IN PLACE. BED LOWEST POSITION, LOCKED, AND CALL LIGHT KEPT WITHIN REACH. WILL ENDORSE TO RETAIL SEASONAL SPECIALIST NURSE.
--- NOTE | 2019-03-10 19:34 | NUR ---
RN OPENING NOTES RECEIVED PATIENT IN ROOM IN BED, AWAKE. A/O X 1. AROUSABLE AT THIS TIME, ABLE TO FOLLOW DIRECTIONS. . NO SIGNS OF RESPIRATORY DISTRESS. RESPIRATIONS EVEN AND UNLABORED WITH EQUAL RISE AND FALL OF CHEST. IV SITES INTACT AND PATENT, NO INFECTION/INFILTRATION NOTED. NO SIGNS OF FACIAL GRIMACING INDICATING PAIN OR DISCOMFORT. SAFETY PRECAUTIONS IMPLEMENTED; CALL LIGHT WITHIN REACH, BED LOWEST POSITION, BED LOCKED, BILATERAL UPPER SIDE RAILS UP. WILL CONTINUE TO MONITOR.
[2019-03-10 20:00] VITALS: BP 129/59
[2019-03-10] MEDS ORDERED: HEPARIN SODIUM, PORCINE 5000 UNITS/1 ML VIAL SQ SCH (21:00)
[2019-03-11] MEDS ORDERED: AZITHROMYCIN 250 MG TABLET PO SCH (01:00)
--- NOTE | 2019-03-11 01:28 | NUR ---
RN NOTES PER, AM NURSE, PATIENT HAS NOT BEEN ABLE TO TAKE MEDICATION DUE TO SAFETY CONCERNS. 0100 MED NON ADMINISTERED DUE TO PATIENT NOT BEING ABLE TO HAVE A SWALLOW EVALUATION AND FOR SAFETY CONCERNS. PATIENT IS ALERT AND ORIENTED X1. PATIENT AROUSABLE BUT TOO TIRED TO COOPERATE AND FOLLOW DIRECTIONS TO HAVE A SWALLOW EVALUATION DONE. WILL CONTINUE TO MONITOR.
--- NOTE | 2019-03-11 02:27 | NUR ---
RN NOTES PATIENT PULLED OUT IV SITE RIGHT HAND 18G. OTHER IV SITES REMAIN IN PLACE.
[2019-03-11] MEDS: ALBUTEROL HALF STRENGTH 1.25 MG/3 ML VIAL.NEB NEB SCH ×6 (02:44→23:25)
--- NOTE | 2019-03-11 06:37 | NUR ---
RN CLOSING NOTES PATIENT IN BED ASLEEP, RESTING, AROUSABLE TO VOICE. NO ACUTE CHANGES OVERNIGHT. REMAINING IV SITES REMAIN INTACT, PATENT, NO INFILTRATION/INFECTION NOTED. SUCTIONED PATIENT PRN FOR SECRETIONS. BIRCH CATHETER IN PLACE, DRAINING CLEAR YELLOW URINE. ALL NEEDS ATTENDED. PATIENT KEPT CLEAN, DRY AND COMFORTABLE. NO SIGNS OF FACIAL GRIMACING INDICATING PAIN OR DISCOMFORT. PATIENT REPOSITIONED Q2H. SAFETY PRECAUTIONS IMPLEMENTED; CALL LIGHT WITHIN REACH, BED LOWEST POSITION, BED LOCKED, BILATERAL UPPER SIDE RAILS UP. WILL CONTINUE TO MONITOR AND THEN WILL ENDORSE TO DAYSHIFT NURSE FOR CONTINUITY OF CARE.
--- NOTE | 2019-03-11 07:35 | NUR ---
MS RN NOTES PATIENT IN BED, ASLEEP, ALERT AND ORIENTED X1-2. PATIENT IS RESPONSIVE TO NAME. PATIENT IS BREATHING EVEN AND UNLABORED. DISPLAYS NO ACUTE DISTRESS, NO ACUTE PAIN. IV ON L AC #18G AND R AC #18G IS CLEAN, DRY, AND INTACT. SHOWS NO SIGNS OF REDNESS, NO INFILTRATION. SAFETY PRECAUTIONS IMPLEMENTED. BED IN LOWEST POSITION, LOCKED, TWO SIDE RAILS UP, AND CALL LIGHT KEPT WITHIN PLACE. WILL CONTINUE TO MONITOR.
[2019-03-11 08:00] VITALS: BP 132/72
[2019-03-11 08:09] LABS: BASOPHILS % (AUTO) 0.4 % (0.0-2.0); EOSINOPHILS % (AUTO) 0.2 % (0.0-6.0); HEMATOCRIT 34 % (33-45); HEMOGLOBIN 10.6 g/dL (11.5-14.8); LYMPHOCYTES # (AUTO) 0.7 /CMM (0.8-4.8); LYMPHOCYTES % (AUTO) 7.7 % (20.0-44.0); MEAN CORPUSCULAR HGB CONC 31 g/dl (31.0-36.0); MEAN CORPUSCULAR VOLUME 94 fL (82-100); MONOCYTES # (AUTO) 0.5 /CMM (0.1-1.30); MONOCYTES % (AUTO) 5.6 % (2.0-12.0); NEUTROPHILS # (AUTO) 8.2 /CMM (1.8-8.9); NEUTROPHILS % (AUTO) 86.1 % (43.0-81.0); PLATELET COUNT (AUTO) 83 /CMM (150-450); RED BLOOD CELL COUNT(AUTO) 3.63 MIL/uL (4.0-5.2); WHITE BLOOD COUNT (AUTO) 9.5 K/uL (4.3-11.0)
[2019-03-11 08:24] LABS: BAND % (MANUAL) 5 % (0.0-5.0); LYMPHOCYTES % (MANUAL) 9 % (16-48); MONOCYTES % (MANUAL) 7 % (0-11.0); NEUTROPHILS % (MANUAL) 79 (42-76)
[2019-03-11] MEDS: PIPERACILLIN /TAZOBACTAM 3.375 G in IV D5W 100 ML IV SCH ×5 (08:29→23:57)
[2019-03-11] MEDS: LEVOTHYROXINE SODIUM 175 MCG TABLET PO SCH (08:29)
[2019-03-11] MEDS: DIVALPROEX SODIUM 250 MG TABLET.DR PO SCH ×2 (08:29→16:26)
[2019-03-11] MEDS: risperiDONE 0.25 MG TABLET PO SCH ×2 (08:30→16:26)
[2019-03-11 08:40] LABS: CREATININE 1.3 mg/dL (0.6-1.3); MAGNESIUM 1.9 mg/dL (1.8-2.4); PHOSPHORUS 2.7 mg/dL (2.5-4.9); POTASSIUM 4.3 mmol/L (3.5-5.1)
[2019-03-11] MEDS: GABAPENTIN 100 MG CAPSULE PO SCH ×3 (08:40→16:25)
[2019-03-11] MEDS: DOCUSATE SODIUM 100 MG CAPSULE PO SCH ×2 (08:40→16:24)
[2019-03-11] MEDS: LISINOPRIL (5MG) 5 MG TABLET PO SCH (08:40)
[2019-03-11] MEDS: CARVEDILOL 3.125 MG TABLET PO SCH ×2 (08:40→16:26)
[2019-03-11] MEDS: PANTOPRAZOLE 40 MG TABLET.DR PO SCH (08:44)
[2019-03-11] MEDS: PSYLLIUM SEED 1 PKT PACKET PO SCH ×2 (08:44→17:00)
[2019-03-11] MEDS: HEPARIN SODIUM, PORCINE 5000 UNITS/1 ML VIAL SQ SCH ×2 (08:56→22:22)
[2019-03-11] MEDS: ASPIRIN 81 MG TAB.CHEW PO SCH (10:30)
[2019-03-11] MEDS ORDERED: FEE PK DOSING 1 MIN EA MC ONE (10:58)
--- NOTE | 2019-03-11 12:43 | NUR ---
MS RN NOTES FOLLOWED UP WITH PHARMACY REGARDING DELIVERING VANCOMYCIN DUE AT 1200. STILL NOT DELIVERED WILL CONTINUE TO FOLLOW UP.
[2019-03-11] MEDS: VANCOMYCIN HCL 1 GM in IV D5W 260 ML IV SCH (12:55)
[2019-03-11] MEDS: FUROSEMIDE 40 MG TABLET PO SCH (13:06)
[2019-03-11 16:00] VITALS: BP 119/66
--- NOTE | 2019-03-11 19:23 | NUR ---
MS RN NOTES PATIENT IN BED, ALERT AND ORIENTED X 2. PATIENT IS RESPONSIVE TO NAME. BREATHING EVEN AND UNLABORED. DISPLAYS NO ACUTE DISTRESS, NO PAIN. IV LAC #16G IS CLEAN, DRY AND INTACT. SHOWS NO SIGNS OF REDNESS, NO INFILTRATION. ALL PATIENT NEEDS WERE ATTENDED TO. SAFETY PRECAUTIONS IN PLACE. BED LOWEST POSITION, LOCKED, AND CALL LIGHT KEPT WITHIN REACH. WILL ENDORSE TO CUSTOMER SERVICE ANALYST NURSE
--- NOTE | 2019-03-11 19:45 | NUR ---
RN OPENING NOTES RECEIVED REPORT FROM DAYSHIFT RN ARISTEO. FOUND Pt AWAKE, RESTING IN BED, NO S/S OF ACUTE DISTRESS OR SOB NOTED. NO SIGNS OF PAIN NOTED. Pt IS A/OX1 (ALERT TO SELF), BASELINE DEMENTIA, BUT IS ABLE TO NOD HEAD FOR YES AND NO QUESTIONS. BIRCH CATH IN PLACE, DRAINING WELL. IV ACCESS ON RAC #18G & LAC #18G, SL. SAFETY MEASURES IN PLACE. BED LOW, LOCKED, HOB ELEVATED, SIDE RAILS UP, CALL LIGHT AND BEDSIDE TABLE WITHIN REACH. BED ALARM ON. WILL CONTINUE TO MONITOR Pt's CONDITION AND SAFETY THROUGHOUT THE NIGHT.
[2019-03-11 20:00] VITALS: BP 125/70
[2019-03-12] MEDS: ALBUTEROL HALF STRENGTH 1.25 MG/3 ML VIAL.NEB NEB SCH ×4 (03:05→16:07)
[2019-03-12] MEDS: VANCOMYCIN HCL 1 GM in IV D5W 260 ML IV SCH (05:12)
--- NOTE | 2019-03-12 07:07 | NUR ---
RN CLOSING NOTES NO SIGNIFICANT CHANGES IN Pt's CONDITION. Pt REMAINS STABLE PER BASELINE. NO S/S OF ACUTE DISTRESS OR SEVERE SOB NOTED DURING THE NIGHT. ALL NEEDS MET AND ATTENDED TO. SAFETY MEASURES IN PLACE. BED LOW, LOCKED, HOB ELEVATED, SIDE RAILS UP, CALL LIGHT AND BEDSIDE TABLE WITHIN REACH. BED ALARM ON. WILL ENDORSE TO DAYSHIFT RN FOR Pt's LEELA.
--- NOTE | 2019-03-12 07:30 | NUR ---
RN MS NOTES PT IN BED, AWAKE, ALERT TO SELF, NO SIGN OF PAIN OR DISTRESS, CALL LIGHT WITHIN REACH, KEPT WARM AND COMFORTABLE IN BED, IV FLUIDS INFUSING WELL, SAFETY PRECAUTIONS OSBERVED, BED ALARM ON.
[2019-03-12 07:49] LABS: BASOPHILS % (AUTO) 0.4 % (0.0-2.0); EOSINOPHILS % (AUTO) 0.1 % (0.0-6.0); HEMATOCRIT 34 % (33-45); HEMOGLOBIN 10.6 g/dL (11.5-14.8); LYMPHOCYTES # (AUTO) 1.3 /CMM (0.8-4.8); LYMPHOCYTES % (AUTO) 15.6 % (20.0-44.0); MEAN CORPUSCULAR HGB CONC 32 g/dl (31.0-36.0); MEAN CORPUSCULAR VOLUME 91 fL (82-100); MONOCYTES # (AUTO) 0.5 /CMM (0.1-1.30); MONOCYTES % (AUTO) 6.7 % (2.0-12.0); NEUTROPHILS # (AUTO) 6.3 /CMM (1.8-8.9); NEUTROPHILS % (AUTO) 77.2 % (43.0-81.0); PLATELET COUNT (AUTO) 117 /CMM (150-450); RED BLOOD CELL COUNT(AUTO) 3.68 MIL/uL (4.0-5.2); WHITE BLOOD COUNT (AUTO) 8.2 K/uL (4.3-11.0)
[2019-03-12 08:00] VITALS: BP 118/81
[2019-03-12 08:28] LABS: CALCIUM, SERUM 8.1 mg/dL (8.5-10.1); CREATININE 1.3 mg/dL (0.6-1.3); POTASSIUM 4.1 mmol/L (3.5-5.1)
[2019-03-12] MEDS: PIPERACILLIN /TAZOBACTAM 3.375 G in IV D5W 100 ML IV SCH (08:43)
[2019-03-12] MEDS: FUROSEMIDE 40 MG TABLET PO SCH (08:51)
[2019-03-12] MEDS: risperiDONE 0.25 MG TABLET PO SCH (08:51)
[2019-03-12] MEDS: LISINOPRIL (5MG) 5 MG TABLET PO SCH (08:52)
[2019-03-12] MEDS: PANTOPRAZOLE 40 MG TABLET.DR PO SCH (08:52)
[2019-03-12] MEDS: GABAPENTIN 100 MG CAPSULE PO SCH ×2 (08:52→12:15)
[2019-03-12] MEDS: ASPIRIN 81 MG TAB.CHEW PO SCH (08:52)
[2019-03-12] MEDS: DOCUSATE SODIUM 100 MG CAPSULE PO SCH (08:52)
[2019-03-12] MEDS: PSYLLIUM SEED 1 PKT PACKET PO SCH (08:52)
[2019-03-12] MEDS: DIVALPROEX SODIUM 250 MG TABLET.DR PO SCH (08:52)
[2019-03-12] MEDS: LEVOTHYROXINE SODIUM 175 MCG TABLET PO SCH (08:52)
[2019-03-12] MEDS: CARVEDILOL 3.125 MG TABLET PO SCH (08:53)
[2019-03-12] MEDS: HEPARIN SODIUM, PORCINE 5000 UNITS/1 ML VIAL SQ SCH (08:54)
[2019-03-12] MEDS ORDERED: LACTOBACILLUS RHAMNOSUS GG 1 EACH CAP.SPRINK PO SCH (09:00)
[2019-03-12] MEDS ORDERED: PIPE3.376 IV (12:24)
[2019-03-12] MEDS ORDERED: VANC1PLA9 IV (12:24)
--- NOTE | 2019-03-12 12:31 | NUR ---
RN MS NOTES PT IN BED, AWAKE, ALERT TO SELF, ASSISTED WITH MEALS, SEEN BY DR. GUERRERO, DISCHARGE ORDER GIVEN, AWAITING FOR PLACEMENT ARRANGEMENT, MIDLINE ORDERED BY MD FOR CONTINUATION OF IV ATB ON DISCHARGE.
[2019-03-12 16:00] VITALS: BP 133/77
--- NOTE | 2019-03-12 16:58 | NUR ---
RN MS NOTES PT IN BED, ASLEEP, EASY TO AROUSE, ALERT TO SELF, WITH CONFUSION, NO SIGN OF PAIN OR DISTRESS, SEEN BY DR. DAILY, DISCHARGE ORDER GIVEN, REPORT AND DISCHARGE INSTRUCTIONS GIVEN TO ADMITTING NURSE ZAC GALEANA OF [facility], BREATHING TREATMENT RECEIVED BEFORE DISCHARGE, IV NURSE MARIAM INSERTED A MIDLINE TO RIGHT UPPER ARM ORDERED, PT TOLERATED PROCEDURE WELL, PICKED UP BY 2 AMBULANCE PERSONNEL, LEFT VIA GUERNEY IN STABLE CONDITION.
== END 2019-03-12 17:51 | DRG 280 ==
LOC: ER 22:01 → MED 23:52
PROVIDERS: ADMIT Hospitalist; ATTEND Hospitalist
PROC: 05H533Z Insertion of Infusion Device into Right Subclavian Vein, Percutaneous Approach (ICD-10-PCS; principal; 2019-03-12)
PROC: B546ZZA Ultrasonography of Right Subclavian Vein, Guidance (ICD-10-PCS; 2019-03-12)
DX: I13.0 Hypertensive heart and chronic kidney disease with heart failure and stage 1 through stage 4 chronic kidney disease, or unspecified chronic kidney disease (principal); J15.9 Unspecified bacterial pneumonia; I21.A1 Myocardial infarction type 2; I50.43 Acute on chronic combined systolic (congestive) and diastolic (congestive) heart failure; G92 Toxic encephalopathy; N30.01 Acute cystitis with hematuria; E87.2 Acidosis; E44.0 Moderate protein-calorie malnutrition; F32.9 Major depressive disorder, single episode, unspecified; F41.9 Anxiety disorder, unspecified; N18.9 Chronic kidney disease, unspecified; G30.9 Alzheimer's disease, unspecified; F02.80 Dementia in other diseases classified elsewhere, unspecified severity, without behavioral disturbance, psychotic disturbance, mood disturbance, and anxiety; D69.6 Thrombocytopenia, unspecified; Z68.29 Body mass index [BMI] 29.0-29.9, adult; E03.9 Hypothyroidism, unspecified; D64.9 Anemia, unspecified; I44.0 Atrioventricular block, first degree; Z85.850 Personal history of malignant neoplasm of thyroid; Z79.82 Long term (current) use of aspirin; E11.22 Type 2 diabetes mellitus with diabetic chronic kidney disease; Z79.4 Long term (current) use of insulin; B96.5 Pseudomonas (aeruginosa) (mallei) (pseudomallei) as the cause of diseases classified elsewhere
CPT/HCPCS: 31720; 36415; 36600; 71045-TC; 80048-TC; 80061-TC; 80076-TC; 81000-TC; 82803-TC; 82962-TC; 83605-TC; 83735-TC; 83880; 84100-TC; 84484-TC; 85025-TC; 85730-TC; 87040-TC; 87081-TC; 87086-TC; 87186-TC; 92611-TC; 94799-TC; G0378; J0696; J1644; J2543; J3370; J7030; J7040; J7060